=== PATIENT | female | born 1960 | race Caucasian/White ===

== ENCOUNTER 2017-03-19 11:26 | Emergency (ER) | payer OTHER ==
[2017-03-19 13:52] VITALS: BP 143/64
--- NOTE | 2017-03-25 09:30 | UC ---
Abdominal Pain Female HPI - HPI Summary HPI Summary: Here today with left upper quad pain - History of Current Complaint Chief Complaint: UCAbdominalPain Stated Complaint: SIDE PAIN Time Seen by Provider: 03/19/17 13:45 Hx Obtained From: Patient Hx Last Menstrual Period: 5 YEARS AGO ?: No Onset/Duration: Gradual Onset Timing: Constant Severity Initially: Moderate Severity Currently: Moderate Pain Intensity: 8 Pain Scale Used: 0-10 Numeric Location: Discrete At: LUQ Radiates: No Character: Aching, Cramping, Sharp Aggravating Factor(s): Food Alleviating Factor(s): Nothing Associated Signs and Symptoms: Positive: Negative Allergies/Adverse Reactions: Allergies Allergy/AdvReac Type Severity Reaction Status Date / Time Metronidazole Allergy Hives Verified 03/19/17 14:40 [From Flagyl I.V.] Home Medications: Home Medications Glyburide-Metformin [Glyburide/Metformin HCl 1.25-250 mg] 03/19/17 [History] PMH/Surg Hx/FS Hx/Imm Hx Previously Healthy: No Endocrine History: Diabetes - Surgical History Surgical History: None - Social History Alcohol Use: Weekly Substance Use Type: None Smoking Status (MU): Light Every Day Tobacco Smoker Have You Smoked in the Last Year: Yes Cessation Counseling: Patient Advised to Stop Review of Systems Constitutional: Negative Skin: Negative Eyes: Negative ENT: Negative Respiratory: Negative Cardiovascular: Negative Gastrointestinal: Abdominal Pain, Nausea Genitourinary: Negative Motor: Negative Neurovascular: Negative Musculoskeletal: Negative Neurological: Negative Psychological: Negative All Other Systems Reviewed And Are Negative: Yes Physical Exam Triage Information Reviewed: Yes Appearance: Well-Appearing, No Pain Distress, Well-Nourished Vital Signs: Initial Vital Signs Temp 97.7 F 03/19/17 11:39 Pulse 94 03/19/17 11:39 Resp 16 03/19/17 11:39 BP 124/81 03/19/17 11:39 Pulse Ox 99 03/19/17 11:39 Vital Signs Reviewed: Yes Eye Exam: Normal Eyes: Positive: Conjunctiva Clear ENT Exam: Normal ENT: Positive: Normal ENT inspection, Hearing grossly normal, TMs normal. Negative: Nasal congestion, Nasal drainage, Trismus, Muffled/hoarse voice Dental Exam: Normal Neck exam: Normal Neck: Positive: Supple, Nontender Respiratory Exam: Normal Respiratory: Positive: Chest non-tender, Lungs clear, Normal breath sounds, No respiratory distress, No accessory muscle use Cardiovascular Exam: Normal Cardiovascular: Positive: RRR, No Murmur, Pulses Normal, Brisk Capillary Refill Abdominal Exam: Normal Abdomen Description: Positive: Other: - tender LUQ Bowel Sounds: Positive: Present Musculoskeletal Exam: Normal Musculoskeletal: Positive: Strength Intact, ROM Intact Neurological Exam: Normal Neurological: Positive: Alert, Muscle Tone Normal Psychological Exam: Normal Psychological: Positive: Normal Response To Family, Age Appropriate Behavior Skin Exam: Normal Skin: Positive: rashes Abd Pain Female Course/Dx - Course Course Of Treatment: NPO [place] [facility] [place] evaluation - Differential Dx/Diagnosis Differential Diagnosis: Diverticulitis, Urinary Tract Infection, Other - Pancreatitis Provider Diagnoses: LUQ Pain - Physician Notification/Consults Discussed Care of Patient With: khadijah - report given to PA Instructed by Provider To: Transfer Discharge - Discharge Plan Condition: Stable Disposition: TRANS HIGHER LVL OF CARE FAC Referrals: Valentin Renee MD [Primary Care Provider] -
== END 2017-03-19 14:31 | disposition short-term general hospital (02) ==
LOC: UCEAST 11:26 → MERGE 11:26 → UCEAST 14:31
DX: R10.32 Left lower quadrant pain (principal); R11.0 Nausea; E11.9 Type 2 diabetes mellitus without complications; Z79.84 Long term (current) use of oral hypoglycemic drugs; F17.210 Nicotine dependence, cigarettes, uncomplicated
CPT/HCPCS: 81003; 99202; G0463

== ENCOUNTER 2017-03-19 14:19 | Emergency (ER) | payer OTHER ==
[2017-03-19] MEDS ORDERED: Ondansetron INJ* 2 MG/ML VIAL IV ONE (14:45)
[2017-03-19] MEDS ORDERED: Acetaminophen TAB* 325 MG PO ONE (14:45)
[2017-03-19] MEDS ORDERED: NS 0.9% 1000 ML* 1,000 ML IV ONE (14:45)
[2017-03-19] MEDS ORDERED: Morphine INJ* 4 MG/ML 1 ML SYRINGE IV ONE (14:45)
[2017-03-19 15:03] LABS: Hematocrit 51 % (35-47); Hemoglobin 17.6 g/dl (12.0-16.0); Mean Corpuscular HGB Conc 34 g/dl (31-36); Mean Corpuscular Hemoglobin 33 pg (27-31); Mean Corpuscular Volume 97 fL (80-97); Mean Platelet Volume 9 um3 (7.4-10.4); Red Blood Count 5.29 10^6/ul (4.0-5.4); Red Cell Distribution Width 13 % (10.5-15); White Blood Count 9.9 10^3/ul (3.5-10.8)
[2017-03-19 15:27] LABS: ALT 15 U/L (7-52); Albumin 4.8 g/dL (3.2-5.2); Alkaline Phosphatase 69 U/L (34-104); BUN/Creatinine Ratio 29.4 (8-20); Blood Urea Nitrogen 20 mg/dL (6-24); C Reactive Protein 6.09 mg/L (< 5.00); CO2 Carbon Dioxide 21 mmol/L (22-32); Calcium 9.9 mg/dL (8.6-10.3); Chloride 103 mmol/L (101-111); EGFR African American 115.5 (>60); EGFR Non-African American 89.8 (>60); Globulin 3.4 g/dL (2-4); Glucose 109 mg/dL (70-100); Lipase 21 U/L (11.0-82.0); Sodium 130 mmol/L (133-145); Total Protein 8.2 g/dL (6.4-8.9)
[2017-03-19 15:39] LABS: Anion Gap 6 mmol/L (2-11)
[2017-03-19] MEDS ORDERED: Iodixanol* (CONTRAST) 320 MG/ML 100 ML SDV IV ONE (15:39)
[2017-03-19 16:09] VITALS: BP 116/82
--- NOTE | 2017-03-19 16:57 | RAD ---
CLINICAL HISTORY: Left upper quadrant tenderness COMPARISON: None TECHNIQUE: Multiple contiguous axial CT scans were obtained of the abdomen and pelvis after the administration of intravenous contrast. Coronal and sagittal multiplanar reformations are submitted for review. Oral contrast was administered. Delayed images were obtained through the abdomen and pelvis. FINDINGS: LUNG BASES: The lung bases are clear. LIVER: The liver is diffusely low in attenuation compared to the spleen. There are no focal hepatic parenchymal masses. BILE DUCTS: There is no intrahepatic or extrahepatic biliary dilatation. GALLBLADDER: The gallbladder is normal, without pericholecystic inflammatory change. PANCREAS: The pancreas is normal, without mass or ductal dilatation. SPLEEN: Normal in size and appearance. UPPER GI TRACT: Evaluation of the gastrointestinal tract is limited by incomplete gastric distention. The upper GI tract is unremarkable. SMALL BOWEL AND MESENTERY: The small bowel is normal in contour, course, and caliber. There is no obstruction or dilatation. COLON: There are multiple diverticula of the transverse, descending and sigmoid colon. There is no pericolonic inflammatory change. ADRENALS: Normal bilaterally. KIDNEYS: The kidneys are normal in shape, size, contour, and axis. There is no hydronephrosis or nephrolithiasis. BLADDER: The bladder is smooth in contour. PELVIC ORGANS: The uterus and adnexa are grossly normal for technique. AORTA: There is calcific atherosclerotic disease of the abdominal aorta and its branches, without aneurysmal dilatation IVC: Unremarkable LYMPH NODES: There is no lymphadenopathy by size criteria. ABDOMINAL WALL: There is no evidence for abdominal wall hernia. BONES AND SOFT TISSUES: There are mild diffuse degenerative changes. OTHER: None IMPRESSION: 1. DIVERTICULOSIS OF THE TRANSVERSE, DESCENDING, AND SIGMOID COLON, WITHOUT PERICOLONIC INFLAMMATORY CHANGE TO SUGGEST ACUTE DIVERTICULITIS. 2. ATHEROSCLEROSIS. 3. FATTY LIVER
[2017-03-19 17:15] LABS: Troponin I 0.01 ng/mL (<0.04)
[2017-03-19 18:31] LABS: Urine Bacteria 1+ (Absent); Urine Bilirubin Negative (Negative); Urine Glucose Negative (Negative); Urine Nitrite Positive (Negative)
[2017-03-19] MEDS ORDERED: Nicotine Inhaler* 10 MG AMP INH ONE (18:56)
[2017-03-19] MEDS ORDERED: Omeprazole CAP* 20 MG PO ONE (18:59)
[2017-03-19] MEDS ORDERED: oxyCODONE/Acetamin 5/325 MG* TAB PO ONE (18:59)
--- NOTE | 2017-03-22 15:55 | PN ---
Progress Note - Progress Note Date of Service: 03/19/17 Note: Patient left AMA and without treatment. Was complaining of lower abdominal pain. Prelimary culture results grew >100,000 klebsiella penumoniae. Will wait for susceptibility results and final urine culture before starting treatment.
--- NOTE | 2017-03-24 08:49 | PN ---
Progress Note - Progress Note Date of Service: 03/19/17 Note: culture grew klebsiella pna Patient called at 9am to make aware of results. Ptaient placed on Cipro. Nothing further at this time. Rosalia Cherry PA-C
--- NOTE | 2017-03-27 09:52 | ED ---
Minerva Giraldo Alok, scribed for Stanislaw Rajan MD on 03/19/17 at 1536 . Abdominal Pain/Female - HPI Summary HPI Summary: 57F presents to the ED with left sided stabbing abd pain since today while at work as well as ongoing nausea for the past 8 days, worsening last night. Pt states that her nausea is especially aggravated by food. Pt also notes throat pain described as a "lump" and diaphoresis. Pt also notes dypnea. Pt denies fever, chills, or CP. Pt denies dysuria or hematuria. PMHx includes DM and h/o diverticulitis. Pt drinks ETOH but had none last night. - History of Current Complaint Chief Complaint: EDAbdPain Stated Complaint: LT SIDE ABD PAIN/NAUSEA/HEADACHE Time Seen by Provider: 03/19/17 14:34 Hx Obtained From: Patient Hx Last Menstrual Period: 5 YEARS AGO Onset/Duration: Lasting Hours, Still Present Timing: Constant Severity Initially: Moderate Severity Currently: Moderate Pain Intensity: 10 Pain Scale Used: 0-10 Numeric Location: Discrete At: LUQ, Discrete At: LLQ Character: Other: - stabbing Aggravating Factor(s): Food Alleviating Factor(s): Nothing Associated Signs and Symptoms: Positive: Diaphoresis, Nausea, Other: - dyspnea, throat pain. Negative: Fever, Chest Pain Allergies/Adverse Reactions: Allergies Allergy/AdvReac Type Severity Reaction Status Date / Time Metronidazole Allergy Hives Verified 03/19/17 14:40 [From Flagyl I.V.] PMH/Surg Hx/FS Hx/Imm Hx Endocrine/Hematology History: Reports: Hx Diabetes Infectious Disease History: No Infectious Disease History: Denies: Traveled Outside the [place] in Last 30 Days - Family History Known Family History: Positive: Diabetes - Social History Occupation: Employed Full-time Lives: With Family Alcohol Use: Weekly Substance Use Type: Reports: None Smoking Status (MU): Light Every Day Tobacco Smoker Review of Systems Positive: Skin Diaphoresis. Negative: Fever, Chills Negative: Erythema Positive: Sore Throat Negative: Chest Pain Positive: Other - dyspnea. Negative: Shortness Of Breath, Cough Positive: Abdominal Pain, Nausea. Negative: Vomiting Negative: dysuria, hematuria Negative: Myalgia, Edema Negative: Rash Neurological: Other - Negative: Dizziness All Other Systems Reviewed And Are Negative: Yes Physical Exam - Summary Physical Exam Summary: Constitutional: Well-developed, Well-nourished, Alert. (-) Distressed Skin: Warm, Dry HENT: Normocephalic; Atraumatic Eyes: Conjunctiva normal Neck: Musculoskeletal ROM normal neck. (-) JVD, (-) Stridor, (-) Tracheal deviation Cardio: Rhythm regular, rate normal, Heart sounds normal; Intact distal pulses; The pedal pulses are 2+ and symmetric. Radial pulses are 2+ and symmetric. (-) Murmur Pulmonary/Chest wall: Effort normal. (-) Respiratory distress, (-) Wheezes, (-) Rales Abd: Soft, Positive Left Upper Quadrant Tenderness, (-) Distension, (-) Guarding , (-) Rebound Musculoskeletal: (-) Edema Lymph: (-) Cervical adenopathy Neuro: Alert, Oriented x3 Psych: Mood and affect Normal Triage Information Reviewed: Yes Vital Signs On Initial Exam: Initial Vitals Temp Pulse Resp BP Pulse Ox 97.1 F 89 20 124/90 99 03/19/17 14:21 03/19/17 14:21 03/19/17 14:21 03/19/17 14:21 03/19/17 14:21 Vital Signs Reviewed: Yes - Tensed Coma Scale Coma Scale Total: 15 Diagnostics - Vital Signs Vital Signs Temp Pulse Resp BP Pulse Ox 03/19/17 14:37 91 98 03/19/17 14:36 98.5 F 86 15 138/96 96 03/19/17 14:21 97.1 F 89 20 124/90 99 - Laboratory Result Diagrams: 03/19/17 14:50 03/19/17 16:09 Lab Statement: Any lab studies that have been ordered have been reviewed, and results considered in the medical decision making process. - CT Abd/Pel CT CT Interpretation: Positive (See Comments) - IMPRESSION: 1. DIVERTICULOSIS OF THE TRANSVERSE, DESCENDING, AND SIGMOID COLON, WITHOUT PERICOLONIC INFLAMMATORY CHANGE TO SUGGEST ACUTE DIVERTICULITIS. 2. ATHEROSCLEROSIS. 3. FATTY LIVER CT Interpretation Completed By: Radiologist Re-Evaluation - Re-Evaluation First Eval Re-Evaluation Time: 18:59 Change: Unchanged Comment: Discussed that thw risk of AL was still a consideration with the patient. Pt declined to repeat labs since she would like to go home. Pt understands the risk of disability and with this dx. Pt will sign out AMA and was encouraged to return to the ED for any new or recurring symptoms. Abdominal Pain Fem Course/Dx - Diagnoses Provider Diagnoses: Upper abdominal pain Discharge - Discharge Plan Condition: Stable Disposition: AGAINST MEDICAL ADVICE The documentation as recorded by the Minerva mueller Alok accurately reflects the service I personally performed and the decisions made by , Stanislaw Rajan MD.
== END 2017-03-19 19:07 | disposition left against medical advice (07) ==
LOC: ED 14:19 → MERGE 14:19 → ED 19:07
DX: R10.12 Left upper quadrant pain (principal); K76.0 Fatty (change of) liver, not elsewhere classified; K57.30 Diverticulosis of large intestine without perforation or abscess without bleeding; R61 Generalized hyperhidrosis; R11.0 Nausea; R06.00 Dyspnea, unspecified; R07.0 Pain in throat; E11.9 Type 2 diabetes mellitus without complications; Z88.1 Allergy status to other antibiotic agents; F17.210 Nicotine dependence, cigarettes, uncomplicated
CPT/HCPCS: 36415; 74177; 80053; 81003; 81015; 83605; 83690; 84484; 85025; 85379; 86140; 87077; 87086; 87186; 96361; 96374; 96375; 99283; A9270-GY; J2270; J2405; Q9967